=== PATIENT | female | born 1950 | race Caucasian/White ===

== ENCOUNTER 2020-07-31 13:51 | Emergency (ER) | payer MEDICARE, MEDICAID ==
[~2020-07-31] VITALS: Ht 162.6 cm; Wt 73.0 kg
[~2020-07-31 13:51] MED LIST: ASPI-986; ASPI-986 PO; ATOR20TA PO; CARVEDILOL; COR6 PO; HUMULIN; HYDR-4005 PO; INSU3INS6; ZOLP10TA2 PO
[2020-07-31] MEDS ORDERED: MORPHINE SULFATE 4 MG/ML CPJ (NOT FOR IM USE) IV STA (14:36)
[2020-07-31] MEDS ORDERED: SODIUM CHLORIDE 0.9% 1,000 ML IV ONE ×3 (14:36→14:38)
[2020-07-31] MEDS ORDERED: ONDANSETRON HCL 4MG/2ML INJ IV STA (14:36)
[2020-07-31] MEDS ORDERED: INSULIN REGULAR (HUMULIN R) 300UNITS/3ML SUBCUT ONE (14:45)
[2020-07-31] MEDS ORDERED: INSULIN REGULAR (HUMULIN R) UD 100 UNITS/ML SYR SUBCUT ONE (14:45)
[2020-07-31 15:16] LABS: BASOPHILS % 0.6 % (0.0-2.0); EOSINOPHILS % 3.7 % (0.0-5.0); HEMATOCRIT. 39.9 % (36.0-48.0); HEMOGLOBIN. 13.6 g/dL (12.0-16.0); MEAN CORPUSCULAR HEMOGLOBIN 31.6 pg (28.0-32.0); MEAN CORPUSCULAR VOLUME 92.7 fL (81.0-99.0); MEAN PLATELET VOLUME 9.5 fl (7.4-10.4); MONOCYTES % 8.1 % (2.0-8.0); NEUTROPHILS % 52.6 % (40.0-76.0); PLATELET 204 x1000/uL (130-400); RED BLOOD CELL COUNT 4.31 mill/uL (4.2-5.4)
[2020-07-31 15:17] LABS: PARTIAL THROMBOPLASTIN TIME 23.9 sec (23.4-31.0); PROTHROMBIN TIME 10.8 sec (9.6-11.0)
[2020-07-31 15:18] LABS: CHLORIDE 108 mEq/L (98-107)
[2020-07-31 15:25] LABS: BETA HYDROXYBUTYRATE 0.1 mMol/L (0.0-0.3)
[2020-07-31 16:49] LABS: CLARITY URINE CLOUDY (CLEAR); COLOR URINE YELLOW (YELLOW); KETONES URINE NEGATIVE (NEGATIVE); LEUKOCYTE ESTERASE URINE TRACE (NEGATIVE); NITRITE URINE NEGATIVE (NEGATIVE); OCCULT BLOOD URINE NEGATIVE (NEGATIVE); PROTEIN URINE NEGATIVE (NEGATIVE); SPECIFIC GRAVITY URINE 1.037 (1.005-1.030); UROBILINOGEN URINE 0.2 E.U./dL (0.2-1.0)
[2020-07-31 18:00] VITALS: BP 140/87
== END 2020-07-31 18:47 | disposition home or self-care (01) ==
LOC: ER 13:51
DX: N39.0 Urinary tract infection, site not specified (principal); E11.9 Type 2 diabetes mellitus without complications; E78.00 Pure hypercholesterolemia, unspecified; I10 Essential (primary) hypertension; Z86.73 Personal history of transient ischemic attack (TIA), and cerebral infarction without residual deficits; Z90.49 Acquired absence of other specified parts of digestive tract; Z79.82 Long term (current) use of aspirin; Z79.899 Other long term (current) drug therapy
CPT/HCPCS: 36415; 71045; 74176; 76705; 80053; 81003; 82010; 82962; 83690; 84484; 85025; 85610; 85730; 87086; 93005; 96361; 96372; 96374; 96375; 99285; J1815; J2270; J2405; J7030

== ENCOUNTER 2020-09-28 15:32 | Inpatient (IN) | payer MEDICARE, MEDICAID ==
[~2020-09-28] VITALS: Ht 160 cm; Wt 70.8 kg
[2020-09-28] MEDS ORDERED: FAMOTIDINE 20MG/2ML VIAL IV STA (17:04)
[2020-09-28 17:08] LABS: BASOPHILS % 0.4 % (0.0-2.0); EOSINOPHILS % 3.1 % (0.0-5.0); HEMATOCRIT. 39.2 % (36.0-48.0); HEMOGLOBIN. 13.4 g/dL (12.0-16.0); LYMPHOCYTES % 21.3 % (20.0-50.0); MEAN CORPUSCULAR HEMOGLOBIN 30.7 pg (28.0-32.0); MEAN PLATELET VOLUME 9.2 fl (7.4-10.4); MONOCYTES % 7.2 % (2.0-8.0); PLATELET 206 x1000/uL (130-400); RED BLOOD CELL COUNT 4.35 mill/uL (4.2-5.4); RED CELL DISTRIBUTION WIDTH 14.1 % (11.6-14.6)
[2020-09-28] MEDS ORDERED: MORPHINE SULFATE 4 MG/ML CPJ (NOT FOR IM USE) IV STA (17:11)
[2020-09-28] MEDS ORDERED: ONDANSETRON HCL 4MG/2ML INJ IV STA (17:11)
[2020-09-28 17:13] LABS: CHLORIDE 107 mEq/L (98-107)
[2020-09-28 17:14] LABS: PROTHROMBIN TIME 10.4 sec (9.6-11.0)
[2020-09-28] MEDS ORDERED: SODIUM CHLORIDE 0.9% 500 ML IV ONE (17:45)
[2020-09-28 18:10] LABS: CLARITY URINE CLOUDY (CLEAR); COLOR URINE YELLOW (YELLOW); KETONES URINE NEGATIVE (NEGATIVE); LEUKOCYTE ESTERASE URINE 1+ (NEGATIVE); NITRITE URINE NEGATIVE (NEGATIVE); OCCULT BLOOD URINE TRACE (NEGATIVE); PROTEIN URINE NEGATIVE (NEGATIVE); SPECIFIC GRAVITY URINE 1.028 (1.005-1.030); UROBILINOGEN URINE 0.2 E.U./dL (0.2-1.0)
[2020-09-28] MEDS ORDERED: CEFTRIAXONE 1 G PREMIX 50 ML IV ONE (20:00)
[2020-09-28] MEDS ORDERED: ONDANSETRON HCL 4MG/2ML INJ IV ONE (21:00)
[2020-09-28] MEDS ORDERED: MORPHINE SULFATE 4 MG/ML CPJ (NOT FOR IM USE) IV ONE (21:00)
[2020-09-28] MEDS ORDERED: PNEUMOCOCCAL 23-VAL P-SAC VAC 0.5 ML IM ONE (22:45)
[2020-09-28] MEDS ORDERED: INFLUENZA VACCINE 05/PF 0.5 ML VIAL IM ONE (22:45)
[2020-09-28] MEDS ORDERED: ENAL2.5T PO (22:48)
[2020-09-28 22:58] VITALS: BP 170/66
[2020-09-28] MEDS ORDERED: ONDANSETRON HCL 4MG/2ML INJ IV PRN (23:00)
[2020-09-28] MEDS ORDERED: CLONIDINE 0.1MG TABLET PO PRN (23:00)
[2020-09-28] MEDS ORDERED: HYDROCODONE/ACETAMINOPHEN 5/325MG TABLET PO PRN (23:00)
[2020-09-28] MEDS ORDERED: ACETAMINOPHEN 325MG TABLET PO PRN (23:00)
[2020-09-28] MEDS ORDERED: DOCUSATE SODIUM 100MG CAPSULE PO PRN (23:00)
[2020-09-28] MEDS ORDERED: MAGNESIUM/ALUMINUM HYDROXIDE/SIMETHICONE 30ML UDC PO PRN (23:00)
[2020-09-28] MEDS ORDERED: GABA-531 PO (23:07)
[2020-09-28] MEDS: AMLODIPINE 10MG TABLET PO SCH (23:32)
[2020-09-29] VITALS (7 sets, daily range): BP systolic 103–141; BP diastolic 53–70
[2020-09-29] MEDS: ACETAMINOPHEN WITH CODEINE 300/30MG TABLET PO PRN ×2 (00:08→20:59)
[2020-09-29] MEDS ORDERED: DEXTROSE 50% WATER 50ML SYRINGE IV PRN (06:00)
[2020-09-29] MEDS: KETOROLAC 15MG/ML VIAL IV PRN ×3 (06:15→18:21)
[2020-09-29 06:20] LABS: BASOPHILS % 0.4 % (0.0-2.0); EOSINOPHILS % 2.3 % (0.0-5.0); HEMATOCRIT. 38.5 % (36.0-48.0); HEMOGLOBIN. 13.1 g/dL (12.0-16.0); LYMPHOCYTES % 23.7 % (20.0-50.0); MEAN CORPUSCULAR HEMOGLOBIN 30.3 pg (28.0-32.0); MEAN CORPUSCULAR VOLUME 89.2 fL (81.0-99.0); MEAN PLATELET VOLUME 9.1 fl (7.4-10.4); MONOCYTES % 7.8 % (2.0-8.0); NEUTROPHILS % 65.8 % (40.0-76.0); PLATELET 199 x1000/uL (130-400); RED BLOOD CELL COUNT 4.31 mill/uL (4.2-5.4); RED CELL DISTRIBUTION WIDTH 14.1 % (11.6-14.6)
[2020-09-29 06:49] LABS: CHLORIDE 106 mEq/L (98-107)
[2020-09-29] MEDS: BLOOD SUGAR DIAGNOSTIC STRIP TEST SCH ×4 (07:18→20:51)
[2020-09-29] MEDS: AMLODIPINE 10MG TABLET PO SCH (08:51)
[2020-09-29] MEDS: INSULIN LISPRO 100 UNITS/ML SUBCUT SCH ×4 (08:54→21:12)
[2020-09-29] MEDS: LEVOFLOXACIN 500MG PREMIX 100 ML IV SCH (08:58)
[2020-09-29] MEDS ORDERED: ZOLPIDEM TARTRATE 5MG TABLET PO PRN (10:15)
[2020-09-29] MEDS ORDERED: POTASSIUM CHLORIDE 20MEQ TABLET SR PO NR (11:18)
[2020-09-29] MEDS: CARVEDILOL 6.25 MG TABLET PO SCH ×2 (11:49→20:50)
[2020-09-29] MEDS: ASPIRIN 325MG TABLET PO SCH (11:49)
[2020-09-29] MEDS: GABAPENTIN 300MG CAPSULE PO SCH (11:49)
[2020-09-29] MEDS ORDERED: ATORVASTATIN CALCIUM 20MG TABLET PO SCH (21:00)
[2020-09-30] VITALS: BP 144/70
[2020-09-30] MEDS: KETOROLAC 15MG/ML VIAL IV PRN ×3 (00:32→13:40)
[2020-09-30 04:00] VITALS: BP 114/51
[2020-09-30] MEDS: ACETAMINOPHEN WITH CODEINE 300/30MG TABLET PO PRN (04:30)
[2020-09-30] MEDS: BLOOD SUGAR DIAGNOSTIC STRIP TEST SCH ×3 (07:20→17:52)
[2020-09-30] MEDS: LEVOFLOXACIN 500MG PREMIX 100 ML IV SCH (08:50)
[2020-09-30] MEDS: AMLODIPINE 10MG TABLET PO SCH (08:50)
[2020-09-30] MEDS: GABAPENTIN 300MG CAPSULE PO SCH (08:50)
[2020-09-30] MEDS: ASPIRIN 325MG TABLET PO SCH (08:50)
[2020-09-30] MEDS: CARVEDILOL 6.25 MG TABLET PO SCH (08:52)
[2020-09-30] MEDS: INSULIN LISPRO 100 UNITS/ML SUBCUT SCH ×3 (09:01→18:21)
[2020-09-30] MEDS ORDERED: NITROFURANTOIN 100MG M/M CAPSULE PO SCH (10:00)
[2020-09-30 12:00] VITALS: BP 139/60
[2020-09-30 14:41] VITALS: BP_SYST 139; BP_SYST 18; BP_DIAS 141; BP_DIAS 60
[2020-09-30 16:00] VITALS: BP 141/79
[2020-09-30 20:00] VITALS: BP 145/82
[2020-09-30] MEDS ORDERED: HEMORRHOIDAL SUPP PR SCH (21:00)
== END 2020-09-30 17:30 | DRG 690 ==
LOC: ER 15:32 → 6EST 20:26 → EDBEDREQ 20:59 → EDBEDREQTM 20:59 → EDBEDREQSVC 20:59 → ENRESERV 21:30
PROVIDERS: ADMIT Hospitalist; ATTEND Hospitalist
DX: N39.0 Urinary tract infection, site not specified (principal); E44.1 Mild protein-calorie malnutrition; R45.851 Suicidal ideations; I10 Essential (primary) hypertension; E78.5 Hyperlipidemia, unspecified; E11.9 Type 2 diabetes mellitus without complications; E78.00 Pure hypercholesterolemia, unspecified; K57.90 Diverticulosis of intestine, part unspecified, without perforation or abscess without bleeding; I25.10 Atherosclerotic heart disease of native coronary artery without angina pectoris; K64.9 Unspecified hemorrhoids; Z20.828 Contact with and (suspected) exposure to other viral communicable diseases; K76.0 Fatty (change of) liver, not elsewhere classified; Z83.3 Family history of diabetes mellitus; Z86.73 Personal history of transient ischemic attack (TIA), and cerebral infarction without residual deficits; Z90.49 Acquired absence of other specified parts of digestive tract; Z79.82 Long term (current) use of aspirin; Z79.891 Long term (current) use of opiate analgesic; Z79.899 Other long term (current) drug therapy
CPT/HCPCS: 36415; 71045; 74176; 76705; 80053; 81003; 82962; 83036; 84484; 85025; 87077; 87186; 87426; 90686; 90732; 93005; 93970; 96374; 99285; C1893; J0696; J1815; J1885; J1956; J2270; J2405; J3490; J7040

== ENCOUNTER 2021-05-13 23:19 | Emergency (ER) | payer MEDICARE, MEDICAID ==
[~2021-05-13] VITALS: Ht 167.6 cm; Wt 73.0 kg
[~2021-05-13 23:19] MED LIST changes: +ENAL2.5T17 PO; +GABA-532 PO
[2021-05-13] MEDS ORDERED: INSULIN REGULAR (HUMULIN R) 300UNITS/3ML VIAL SUBCUT ONE (23:45)
[2021-05-13] MEDS ORDERED: SODIUM CHLORIDE 0.9% 1,000 ML IV ONE (23:45)
[2021-05-13 23:58] LABS: BASOPHILS % 0.7 % (0.0-2.0); EOSINOPHILS % 2.8 % (0.0-5.0); HEMATOCRIT. 43.7 % (36.0-48.0); HEMOGLOBIN. 14.9 g/dL (12.0-16.0); MEAN CORPUSCULAR HEMOGLOBIN 30.8 pg (28.0-32.0); MEAN CORPUSCULAR VOLUME 90.2 fL (81.0-99.0); MEAN PLATELET VOLUME 8.9 fl (7.4-10.4); MONOCYTES % 8.1 % (2.0-8.0); NEUTROPHILS % 62.4 % (40.0-76.0); PLATELET 259 x1000/uL (130-400); RED BLOOD CELL COUNT 4.84 mill/uL (4.2-5.4); RED CELL DISTRIBUTION WIDTH 14.4 % (11.6-14.6)
[2021-05-14 00:04] LABS: CHLORIDE 105 mEq/L (98-107)
[2021-05-14 00:13] LABS: BETA HYDROXYBUTYRATE 0.2 mMol/L (0.0-0.3)
[2021-05-14] MEDS: ACETAMINOPHEN WITH CODEINE 300/30MG TABLET PO SCH ×3 (00:30→00:40)
[2021-05-14 01:26] LABS: CLARITY URINE CLEAR (CLEAR); COLOR URINE YELLOW (YELLOW); KETONES URINE NEGATIVE (NEGATIVE); LEUKOCYTE ESTERASE URINE NEGATIVE (NEGATIVE); NITRITE URINE NEGATIVE (NEGATIVE); OCCULT BLOOD URINE 1+ (NEGATIVE); PROTEIN URINE NEGATIVE (NEGATIVE); SPECIFIC GRAVITY URINE 1.029 (1.005-1.030); UROBILINOGEN URINE 0.2 E.U./dL (0.2-1.0)
[2021-05-14] MEDS ORDERED: CEPH500C2 MT (01:51)
[2021-05-14 02:15] VITALS: BP 128/80
== END 2021-05-14 02:23 | disposition home or self-care (01) ==
LOC: ER 23:19
DX: E11.65 Type 2 diabetes mellitus with hyperglycemia (principal); E78.00 Pure hypercholesterolemia, unspecified; I11.9 Hypertensive heart disease without heart failure; Z79.82 Long term (current) use of aspirin; Z79.4 Long term (current) use of insulin; Z79.899 Other long term (current) drug therapy; Z98.890 Other specified postprocedural states; Z90.49 Acquired absence of other specified parts of digestive tract; Z86.73 Personal history of transient ischemic attack (TIA), and cerebral infarction without residual deficits
CPT/HCPCS: 36415; 71045; 80053; 81003; 82010; 82962; 83690; 85025; 93005; 96372; 99284; J1815; J7030; 99283

== ENCOUNTER 2021-09-28 14:37 | Emergency (ER) | payer BC, MEDICAID ==
[~2021-09-28] VITALS: Ht 162.6 cm; Wt 65.0 kg
[~2021-09-28 14:37] MED LIST changes: +AMIT75TA2 PO; +AMLO10TA80 PO; -ASPI-986; +ATOR20TA65 PO; -CARVEDILOL; +CEPH500C2 MT; +CLON0.1T PO; -COR6 PO; -ENAL2.5T17 PO; +ENAL20TA18 PO; +EXEN2AUT SQ; +FAMO40TA7 PO; -GABA-532 PO; -HUMULIN; -HYDR-4005 PO; +MIRT-89 PO; +QUET50TA23 PO; +TLXL5 MT
[2021-09-28 15:59] LABS: BASOPHILS % 0.6 % (0.0-2.0); EOSINOPHILS % 10.2 % (0.0-5.0); HEMATOCRIT. 43.6 % (36.0-48.0); HEMOGLOBIN. 14.7 g/dL (12.0-16.0); LYMPHOCYTES % 30.6 % (20.0-50.0); MEAN CORPUSCULAR HEMOGLOBIN 30.8 pg (28.0-32.0); MEAN CORPUSCULAR VOLUME 91.4 fL (81.0-99.0); MEAN PLATELET VOLUME 9.1 fl (7.4-10.4); MONOCYTES % 7.4 % (2.0-8.0); NEUTROPHILS % 51.2 % (40.0-76.0); PLATELET 229 x1000/uL (130-400); RED BLOOD CELL COUNT 4.77 mill/uL (4.2-5.4); RED CELL DISTRIBUTION WIDTH 15.3 % (11.6-14.6)
[2021-09-28 16:14] LABS: CHLORIDE 110 mEq/L (98-107)
[2021-09-28] MEDS ORDERED: ACETAMINOPHEN WITH CODEINE 300/30MG TABLET PO ONE (17:30)
[2021-09-28] MEDS ORDERED: IOHEXOL-350 100 ML BOTTLE ONE (21:02)
[2021-09-28 21:29] LABS: CLARITY URINE CLEAR (CLEAR); COLOR URINE YELLOW (YELLOW); KETONES URINE NEGATIVE (NEGATIVE); LEUKOCYTE ESTERASE URINE 1+ (NEGATIVE); NITRITE URINE POSITIVE (NEGATIVE); OCCULT BLOOD URINE NEGATIVE (NEGATIVE); PROTEIN URINE NEGATIVE (NEGATIVE); SPECIFIC GRAVITY URINE 1.056 (1.005-1.030); UROBILINOGEN URINE 0.2 E.U./dL (0.2-1.0)
[2021-09-28] MEDS ORDERED: LORAZEPAM 1MG TABLET PO ONE (21:45)
[2021-09-28] MEDS ORDERED: CEFTRIAXONE 1 G PREMIX 50 ML IV ONE (22:00)
[2021-09-28] MEDS ORDERED: CEPH500C2 MT (23:33)
[2021-09-29 00:29] VITALS: BP 152/81
== END 2021-09-29 00:42 | disposition home or self-care (01) ==
LOC: ER 14:37
DX: R07.89 Other chest pain (principal); E78.00 Pure hypercholesterolemia, unspecified; E11.9 Type 2 diabetes mellitus without complications; I11.9 Hypertensive heart disease without heart failure; I69.354 Hemiplegia and hemiparesis following cerebral infarction affecting left non-dominant side; Z90.49 Acquired absence of other specified parts of digestive tract
CPT/HCPCS: 36415; 71045; 71275; 80053; 81003; 83880; 84484; 85025; 96365; 96366; 99285; J0696; Q9967

== ENCOUNTER 2021-12-22 18:54 | Inpatient (IN) | payer BC, MEDICAID ==
[~2021-12-22] VITALS: Ht 160 cm; Wt 68.0 kg
[2021-12-22] MEDS ORDERED: SODIUM CHLORIDE 0.9% 1,000 ML IV ONE (19:45)
[2021-12-22 20:08] LABS: HEMATOCRIT. 46.6 % (36.0-48.0); HEMOGLOBIN. 15.6 g/dL (12.0-16.0); MEAN CORPUSCULAR HEMOGLOBIN 29.7 pg (28.0-32.0); MEAN CORPUSCULAR VOLUME 88.8 fL (81.0-99.0); MEAN PLATELET VOLUME 9.3 fl (7.4-10.4); PLATELET 221 x1000/uL (130-400); RED BLOOD CELL COUNT 5.25 mill/uL (4.2-5.4); RED CELL DISTRIBUTION WIDTH 16.2 % (11.6-14.6)
[2021-12-22 20:14] LABS: CHLORIDE 108 mEq/L (98-107)
[2021-12-22 20:22] LABS: PROTHROMBIN TIME 10.9 sec (9.6-11.0)
[2021-12-22 20:49] LABS: PLATELET ESTIMATE NORMAL
[2021-12-22] MEDS ORDERED: PANTOPRAZOLE SODIUM 40 MG/VIAL IV ONE (21:30)
[2021-12-22] MEDS ORDERED: MORPHINE SULFATE 4 MG/ML CPJ (NOT FOR IM USE) IV ONE (21:30)
[2021-12-23] MEDS ORDERED: CEFP200T13 MT (03:41)
[2021-12-23] MEDS ORDERED: CEFTRIAXONE 1 G PREMIX 50 ML IV ONE (03:45)
[2021-12-23] MEDS ORDERED: MORPHINE SULFATE 4 MG/ML CPJ (NOT FOR IM USE) IV ONE (04:00)
[2021-12-23] MEDS ORDERED: IOHEXOL-300 100 ML BOTTLE ONE (06:32)
[2021-12-23] MEDS ORDERED: ACETAMINOPHEN 325MG TABLET PO PRN (10:00)
[2021-12-23] MEDS ORDERED: ONDANSETRON HCL 4MG/2ML INJ IV PRN (10:00)
[2021-12-23 10:29] LABS: HEMOGLOBIN 14.4 g/dL (12.0-16.0)
[2021-12-23] MEDS: POLYETHYLENE GLYCOL 3350 (17GM) 1 DOSE PACK PO SCH (13:00)
[2021-12-23] MEDS: OMEPRAZOLE 20MG CAPSULE EXTENDED RELEASE PO SCH (13:00)
[2021-12-23 16:03] VITALS: BP 159/60
[2021-12-23 16:15] VITALS: BP 120/68
[2021-12-23] MEDS: TRAMADOL 50MG TABLET PO PRN (17:55)
[2021-12-23 18:05] LABS: HEMATOCRIT 42.5 % (36.0-48.0); HEMOGLOBIN 14.4 g/dL (12.0-16.0)
[2021-12-23] MEDS ORDERED: HEMORRHOIDAL SUPP PR NR (19:00)
[2021-12-23 19:01] LABS: TOTAL IRON BINDING CAPACITY 347 ug/dL (250-450)
[2021-12-23 19:15] LABS: FERRITIN 38 ng/mL (10-291)
[2021-12-23 19:26] LABS: VITAMIN B12 SERUM 372 pg/mL (211-911)
[2021-12-23] MEDS ORDERED: NALOXONE HCL 0.4MG/ML VIAL IV PRN (19:45)
[2021-12-23 20:00] VITALS: BP 146/84
[2021-12-23] MEDS: HYDROCODONE/ACETAMINOPHEN 10/325MG TABLET PO PRN (20:45)
[2021-12-23] MEDS ORDERED: DEXTROSE 50% WATER 50ML SYRINGE IV PRN (21:45)
[2021-12-24] VITALS: BP 150/85
[2021-12-24] MEDS: TRAMADOL 50MG TABLET PO PRN ×2 (00:12→23:11)
[2021-12-24] MEDS: HYDROCODONE/ACETAMINOPHEN 10/325MG TABLET PO PRN ×3 (01:05→13:42)
[2021-12-24 04:00] VITALS: BP 141/83
[2021-12-24] MEDS ORDERED: CEFTRIAXONE 1 G PREMIX 50 ML IV SCH (04:00)
[2021-12-24] MEDS: CEFTRIAXONE 1,000 MG in DEXTROSE 5% WATER 50 ML IV SCH (04:25)
[2021-12-24] MEDS: OMEPRAZOLE 20MG CAPSULE EXTENDED RELEASE PO SCH (06:54)
[2021-12-24] MEDS: BLOOD SUGAR DIAGNOSTIC STRIP TEST SCH ×4 (06:54→20:29)
[2021-12-24 07:23] LABS: CLARITY URINE TURBID (CLEAR); COLOR URINE YELLOW (YELLOW); KETONES URINE 1+ (NEGATIVE); LEUKOCYTE ESTERASE URINE 2+ (NEGATIVE); NITRITE URINE POSITIVE (NEGATIVE); OCCULT BLOOD URINE 3+ (NEGATIVE); PROTEIN URINE 2+ (NEGATIVE); SPECIFIC GRAVITY URINE 1.044 (1.005-1.030); UROBILINOGEN URINE 0.2 E.U./dL (0.2-1.0)
[2021-12-24 08:30] VITALS: BP 138/65
[2021-12-24] MEDS: HEMORRHOIDAL SUPP PR SCH ×3 (09:32→21:00)
[2021-12-24] MEDS: POLYETHYLENE GLYCOL 3350 (17GM) 1 DOSE PACK PO SCH (09:33)
[2021-12-24] MEDS: INSULIN LISPRO 100 UNITS/ML SUBCUT SCH ×4 (09:42→20:24)
[2021-12-24 12:00] VITALS: BP 135/64
[2021-12-24 12:52] LABS: BASOPHILS % 0.5 % (0.0-2.0); EOSINOPHILS % 2.7 % (0.0-5.0); HEMATOCRIT. 42.8 % (36.0-48.0); LYMPHOCYTES % 17.1 % (20.0-50.0); MEAN CORPUSCULAR HEMOGLOBIN 29.3 pg (28.0-32.0); MEAN CORPUSCULAR VOLUME 89.8 fL (81.0-99.0); MEAN PLATELET VOLUME 9.1 fl (7.4-10.4); MONOCYTES % 7.6 % (2.0-8.0); NEUTROPHILS % 72.1 % (40.0-76.0); PLATELET 198 x1000/uL (130-400); RED BLOOD CELL COUNT 4.77 mill/uL (4.2-5.4); RED CELL DISTRIBUTION WIDTH 16.1 % (11.6-14.6)
[2021-12-24 12:57] LABS: CHLORIDE 108 mEq/L (98-107)
[2021-12-24] MEDS: PHENAZOPYRIDINE HCL 100MG TABLET PO SCH ×2 (13:42→17:22)
[2021-12-24] MEDS ORDERED: MORPHINE SULFATE 2 MG/ML CPJ (NOT FOR IM USE) IV NR (15:30)
[2021-12-24] MEDS ORDERED: LACTULOSE 20G/30ML UDC PO NR (15:45)
[2021-12-24 17:04] VITALS: BP 141/61
[2021-12-24 20:00] VITALS: BP 110/60
[2021-12-24] MEDS ORDERED: LEVO500T89 MT (23:04)
[2021-12-25] VITALS: BP 129/64
[2021-12-25] MEDS: CEFTRIAXONE 1,000 MG in DEXTROSE 5% WATER 50 ML IV SCH (03:24)
[2021-12-25] MEDS: HYDROCODONE/ACETAMINOPHEN 10/325MG TABLET PO PRN (03:27)
[2021-12-25 03:50] VITALS: BP 149/69
[2021-12-25 06:14] LABS: CHLORIDE 109 mEq/L (98-107)
[2021-12-25] MEDS: OMEPRAZOLE 20MG CAPSULE EXTENDED RELEASE PO SCH (06:25)
[2021-12-25] MEDS: BLOOD SUGAR DIAGNOSTIC STRIP TEST SCH ×4 (06:25→21:14)
[2021-12-25 06:26] LABS: BASOPHILS % 0.6 % (0.0-2.0); HEMATOCRIT. 39.7 % (36.0-48.0); HEMOGLOBIN. 13.6 g/dL (12.0-16.0); LYMPHOCYTES % 23.4 % (20.0-50.0); MEAN CORPUSCULAR HEMOGLOBIN 30.6 pg (28.0-32.0); MEAN CORPUSCULAR VOLUME 89.1 fL (81.0-99.0); MEAN PLATELET VOLUME 9.3 fl (7.4-10.4); PLATELET 188 x1000/uL (130-400); RED BLOOD CELL COUNT 4.45 mill/uL (4.2-5.4); RED CELL DISTRIBUTION WIDTH 15.9 % (11.6-14.6)
[2021-12-25] MEDS ORDERED: MORPHINE SULFATE 4 MG/ML CPJ (NOT FOR IM USE) IV SCH (06:45)
[2021-12-25] MEDS ORDERED: MORPHINE SULFATE 2 MG/ML CPJ (NOT FOR IM USE) IV SCH (06:47)
[2021-12-25] MEDS: INSULIN LISPRO 100 UNITS/ML SUBCUT SCH ×4 (07:50→21:15)
[2021-12-25 08:00] VITALS: BP 104/68
[2021-12-25] MEDS: POLYETHYLENE GLYCOL 3350 (17GM) 1 DOSE PACK PO SCH (09:01)
[2021-12-25] MEDS: HEMORRHOIDAL SUPP PR SCH ×2 (09:01→21:14)
[2021-12-25] MEDS: PHENAZOPYRIDINE HCL 100MG TABLET PO SCH ×3 (10:12→17:49)
[2021-12-25 11:50] VITALS: BP 107/67
[2021-12-25 16:00] VITALS: BP 106/49
[2021-12-25] MEDS ORDERED: BISACODYL 5MG TABLET PO PRN (16:15)
[2021-12-25] MEDS ORDERED: MORPHINE SULFATE 2 MG/ML CPJ (NOT FOR IM USE) IV NR (17:30)
[2021-12-25] MEDS: DOCUSATE SODIUM 250MG CAPSULE PO SCH (17:49)
[2021-12-25 20:00] VITALS: BP 122/61
[2021-12-25] MEDS: LACTULOSE 20G/30ML UDC PO SCH (21:14)
[2021-12-26] VITALS: BP 130/65
[2021-12-26] MEDS: TRAMADOL 50MG TABLET PO PRN (01:08)
[2021-12-26] MEDS: CEFTRIAXONE 1,000 MG in DEXTROSE 5% WATER 50 ML IV SCH (03:55)
[2021-12-26 04:00] VITALS: BP 137/69
[2021-12-26] MEDS: LACTULOSE 20G/30ML UDC PO SCH ×2 (06:22→14:00)
[2021-12-26] MEDS: OMEPRAZOLE 20MG CAPSULE EXTENDED RELEASE PO SCH (06:23)
[2021-12-26] MEDS: BLOOD SUGAR DIAGNOSTIC STRIP TEST SCH ×3 (06:39→17:48)
[2021-12-26 06:50] LABS: BASOPHILS % 0.7 % (0.0-2.0); HEMATOCRIT. 42.6 % (36.0-48.0); HEMOGLOBIN. 14.6 g/dL (12.0-16.0); MEAN CORPUSCULAR HEMOGLOBIN 30.3 pg (28.0-32.0); MEAN CORPUSCULAR VOLUME 88.4 fL (81.0-99.0); MEAN PLATELET VOLUME 9.2 fl (7.4-10.4); MONOCYTES % 9.2 % (2.0-8.0); NEUTROPHILS % 57.1 % (40.0-76.0); PLATELET 206 x1000/uL (130-400); RED BLOOD CELL COUNT 4.82 mill/uL (4.2-5.4); RED CELL DISTRIBUTION WIDTH 15.8 % (11.6-14.6)
[2021-12-26 07:10] LABS: CHLORIDE 108 mEq/L (98-107)
[2021-12-26 08:00] VITALS: BP 132/75
[2021-12-26] MEDS: PHENAZOPYRIDINE HCL 100MG TABLET PO SCH ×3 (08:37→18:33)
[2021-12-26] MEDS: DOCUSATE SODIUM 250MG CAPSULE PO SCH (08:37)
[2021-12-26] MEDS: HEMORRHOIDAL SUPP PR SCH ×2 (08:37→09:00)
[2021-12-26] MEDS: INSULIN LISPRO 100 UNITS/ML SUBCUT SCH ×3 (08:39→17:50)
[2021-12-26] MEDS: POLYETHYLENE GLYCOL 3350 (17GM) 1 DOSE PACK PO SCH (08:42)
[2021-12-26 12:00] VITALS: BP 143/51
[2021-12-26 16:00] VITALS: BP 150/81
[2021-12-26 17:09] VITALS: BP 150/81
[2021-12-29] MEDS ORDERED: VANC250C12 MT (13:02)
== END 2021-12-26 20:24 | disposition home or self-care (01) | DRG 872 ==
LOC: ER 18:54 → MICUSO 12-23 06:07 → 6WST 12-23 16:40
PROVIDERS: ADMIT Internal Medicine; ATTEND Internal Medicine
DX: A41.9 Sepsis, unspecified organism (principal); E11.9 Type 2 diabetes mellitus without complications; I10 Essential (primary) hypertension; E78.5 Hyperlipidemia, unspecified; N30.90 Cystitis, unspecified without hematuria; E87.8 Other disorders of electrolyte and fluid balance, not elsewhere classified; K64.9 Unspecified hemorrhoids; E78.00 Pure hypercholesterolemia, unspecified; K57.90 Diverticulosis of intestine, part unspecified, without perforation or abscess without bleeding; Z20.822 Contact with and (suspected) exposure to COVID-19; F17.210 Nicotine dependence, cigarettes, uncomplicated; K76.0 Fatty (change of) liver, not elsewhere classified; Z86.73 Personal history of transient ischemic attack (TIA), and cerebral infarction without residual deficits; Z79.2 Long term (current) use of antibiotics; Z79.899 Other long term (current) drug therapy; Z79.1 Long term (current) use of non-steroidal anti-inflammatories (NSAID); Z79.82 Long term (current) use of aspirin; Z90.49 Acquired absence of other specified parts of digestive tract
CPT/HCPCS: 36415; 74018; 74177; 80053; 81003; 82607; 82728; 82962; 83540; 83550; 83605; 85014; 85018; 85025; 85044; 86850; 86900; 87015; 87045; 87426; 87427; 87449; 87493; 89055; 93005; 99285; C1893; C9113; J0696; J1815; J2270; J7030; J7060; Q9967

== ENCOUNTER 2022-03-14 05:26 | Inpatient (IN) | payer MEDICARE, MEDICAID ==
[2022-03-14] VITALS (51 sets, daily range): BP systolic 45–165; BP diastolic 14–108
[~2022-03-14] VITALS: Ht 160 cm; Wt 78.5 kg
[~2022-03-14 05:26] MED LIST changes: -AMIT75TA2 PO; -ATOR20TA65 PO; -CEPH500C2 MT; -CLON0.1T PO; +DAPA10TA PO; +DOCU-286 PO; +DULA1.5P SQ; -EXEN2AUT SQ; +FLUT15.844 NS; +HYDR-459 PO; +LINA1TAB5 PO; +SENN8.6T21 PO; +T3 PO; -TLXL5 MT; -ZOLP10TA2 PO
[2022-03-14] MEDS ORDERED: NICARDIPINE 100 MG in SODIUM CHLORIDE 0.9% 60 ML IV PRN (07:45)
[2022-03-14] MEDS: MORPHINE SULFATE 4 MG/ML CPJ (NOT FOR IM USE) IV PRN ×3 (10:16→15:15)
[2022-03-14] MEDS ORDERED: MORPHINE SULFATE 2 MG/ML CPJ (NOT FOR IM USE) IV NR (10:45)
[2022-03-14] MEDS: DEXT 5%/LACTATED RINGERS 1,000 ML IV SCH ×2 (12:09→20:16)
[2022-03-14] MEDS: NICARDIPINE 100 MG in SODIUM CHLORIDE 0.9% 60 ML IV PRN (12:10)
[2022-03-14] MEDS: DEXAMETHASONE 4MG/ML 1ML VIAL IV SCH ×2 (12:20→17:51)
[2022-03-14] MEDS ORDERED: DEXTROSE 50% WATER 50ML SYRINGE IV PRN (12:30)
[2022-03-14] MEDS ORDERED: ACETAMINOPHEN 325MG TABLET PO PRN (12:30)
[2022-03-14] MEDS ORDERED: ONDANSETRON HCL 4MG/2ML INJ IV PRN (12:30)
[2022-03-14] MEDS ORDERED: HYDRALAZINE 20MG/ML VIAL IV PRN (12:30)
[2022-03-14] MEDS ORDERED: NALOXONE HCL 0.4MG/ML VIAL IV PRN (12:45)
[2022-03-14] MEDS ORDERED: CEFAZOLIN SODIUM 1000MG/VIAL IV SCH (14:00)
[2022-03-14] MEDS ORDERED: HYDROMORPHONE HCL/PF 2MG/ML CPJ IM PRN (15:45)
[2022-03-14] MEDS: CEFAZOLIN 1000MG PREMIX 50 ML IV SCH ×2 (15:51→21:36)
[2022-03-14] MEDS: HYDROMORPHONE HCL/PF 2MG/ML CPJ IV PRN ×2 (16:12→21:36)
[2022-03-14] MEDS: BLOOD SUGAR DIAGNOSTIC STRIP TEST SCH ×2 (16:30→20:52)
[2022-03-14] MEDS ORDERED: IPRATROPIUM/ALBUTEROL 0.5-3(2.5)MG/3ML NEB HHN PRN (16:45)
[2022-03-14] MEDS: INSULIN LISPRO 100 UNITS/ML SUBCUT SCH ×2 (17:54→21:30)
[2022-03-15] VITALS (86 sets, daily range): BP systolic 76–156; BP diastolic 11–106
[2022-03-15] MEDS: DEXAMETHASONE 4MG/ML 1ML VIAL IV SCH ×3 (00:13→12:39)
[2022-03-15] MEDS: NICARDIPINE 100 MG in SODIUM CHLORIDE 0.9% 60 ML IV PRN ×2 (00:14→17:27)
[2022-03-15] MEDS: HYDROMORPHONE HCL/PF 2MG/ML CPJ IV PRN ×6 (00:51→21:27)
[2022-03-15] MEDS: CEFAZOLIN 1000MG PREMIX 50 ML IV SCH (05:43)
[2022-03-15] MEDS: INSULIN LISPRO 100 UNITS/ML SUBCUT SCH ×4 (05:43→21:26)
[2022-03-15] MEDS: DEXT 5%/LACTATED RINGERS 1,000 ML IV SCH ×2 (05:44→13:56)
[2022-03-15] MEDS: BLOOD SUGAR DIAGNOSTIC STRIP TEST SCH ×4 (05:44→21:09)
[2022-03-15 06:33] LABS: HEMATOCRIT. 37.3 % (36.0-48.0); HEMOGLOBIN. 12.5 g/dL (12.0-16.0); MEAN CORPUSCULAR VOLUME 89.9 fL (81.0-99.0); MEAN PLATELET VOLUME 9.1 fl (7.4-10.4); PLATELET 214 x1000/uL (130-400); RED BLOOD CELL COUNT 4.15 mill/uL (4.2-5.4); RED CELL DISTRIBUTION WIDTH 14.7 % (11.6-14.6)
[2022-03-15 06:43] LABS: CHLORIDE 111 mEq/L (98-107)
[2022-03-15] MEDS: AMLODIPINE 5MG TABLET PO SCH (09:29)
[2022-03-15] MEDS ORDERED: HYDROCODONE/APAP 7.5/325MG 1 TAB TABLET PO PRN (11:00)
[2022-03-15] MEDS ORDERED: HYDROCODONE/ACETAMINOPHEN 5/325MG TABLET PO PRN (11:00)
[2022-03-15] MEDS ORDERED: HYDROMORPHONE HCL/PF 2MG/ML CPJ IV NR (11:20)
[2022-03-15 13:21] LABS: PLATELET ESTIMATE NORMAL
[2022-03-15] MEDS: PANTOPRAZOLE SODIUM 40 MG/VIAL IV SCH (21:26)
[2022-03-16] VITALS (30 sets, daily range): BP systolic 78–185; BP diastolic 20–84
[2022-03-16] MEDS: HYDROMORPHONE HCL/PF 2MG/ML CPJ IV PRN ×3 (00:40→10:19)
[2022-03-16] MEDS: DEXT 5%/LACTATED RINGERS 1,000 ML IV SCH ×3 (00:40→21:35)
[2022-03-16 05:53] LABS: BASOPHILS % 0.1 % (0.0-2.0); HEMATOCRIT. 36.1 % (36.0-48.0); HEMOGLOBIN. 11.9 g/dL (12.0-16.0); LYMPHOCYTES % 7.7 % (20.0-50.0); MEAN CORPUSCULAR HEMOGLOBIN 29.9 pg (28.0-32.0); MEAN CORPUSCULAR VOLUME 90.9 fL (81.0-99.0); MONOCYTES % 7.3 % (2.0-8.0); NEUTROPHILS % 84.9 % (40.0-76.0); PLATELET 204 x1000/uL (130-400); RED BLOOD CELL COUNT 3.97 mill/uL (4.2-5.4); RED CELL DISTRIBUTION WIDTH 15.4 % (11.6-14.6)
[2022-03-16] MEDS: INSULIN LISPRO 100 UNITS/ML SUBCUT SCH ×2 (06:04→21:00)
[2022-03-16] MEDS: BLOOD SUGAR DIAGNOSTIC STRIP TEST SCH ×3 (06:05→21:36)
[2022-03-16 06:06] LABS: CHLORIDE 113 mEq/L (98-107)
[2022-03-16] MEDS: PANTOPRAZOLE SODIUM 40 MG/VIAL IV SCH (08:27)
[2022-03-16] MEDS: AMLODIPINE 5MG TABLET PO SCH (08:27)
[2022-03-16] MEDS ORDERED: HYDRALAZINE 10 MG in SODIUM CHLORIDE 0.9% 49.5 ML IV PRN ×4 (13:15)
[2022-03-17] VITALS: BP 146/65
[2022-03-17 04:00] VITALS: BP 149/64
[2022-03-17] MEDS: HYDROMORPHONE HCL/PF 2MG/ML CPJ IV PRN ×2 (05:20→23:43)
[2022-03-17] MEDS: DEXT 5%/LACTATED RINGERS 1,000 ML IV SCH ×2 (05:21→15:39)
[2022-03-17] MEDS: BLOOD SUGAR DIAGNOSTIC STRIP TEST SCH ×4 (06:51→20:48)
[2022-03-17 07:38] LABS: BASOPHILS % 0.2 % (0.0-2.0); EOSINOPHILS % 1.1 % (0.0-5.0); LYMPHOCYTES % 21.4 % (20.0-50.0); MEAN CORPUSCULAR HEMOGLOBIN 29.9 pg (28.0-32.0); MEAN CORPUSCULAR VOLUME 90.2 fL (81.0-99.0); MEAN PLATELET VOLUME 8.4 fl (7.4-10.4); MONOCYTES % 9.6 % (2.0-8.0); NEUTROPHILS % 67.7 % (40.0-76.0); PLATELET 204 x1000/uL (130-400); RED BLOOD CELL COUNT 4.33 mill/uL (4.2-5.4); RED CELL DISTRIBUTION WIDTH 14.7 % (11.6-14.6)
[2022-03-17 08:00] VITALS: BP 132/60
[2022-03-17 08:11] LABS: CHLORIDE 108 mEq/L (98-107)
[2022-03-17] MEDS: MORPHINE SULFATE 4 MG/ML CPJ (NOT FOR IM USE) IV PRN ×3 (09:24→21:06)
[2022-03-17] MEDS: AMLODIPINE 5MG TABLET PO SCH (09:25)
[2022-03-17] MEDS: INSULIN LISPRO 100 UNITS/ML SUBCUT SCH ×4 (09:26→21:05)
[2022-03-17] MEDS: PANTOPRAZOLE SODIUM 40 MG/VIAL IV SCH (09:29)
[2022-03-17] MEDS ORDERED: POTASSIUM CHLORIDE 20MEQ TABLET SR PO NR (12:00)
[2022-03-17] MEDS: LACTULOSE 20G/30ML UDC PO SCH ×2 (15:39→18:00)
[2022-03-17 16:00] VITALS: BP 118/48
[2022-03-17 20:00] VITALS: BP 139/67
[2022-03-18] VITALS: BP 133/55
[2022-03-18] MEDS: DEXT 5%/LACTATED RINGERS 1,000 ML IV SCH ×2 (01:50→13:11)
[2022-03-18 04:00] VITALS: BP 141/71
[2022-03-18] MEDS: HYDROMORPHONE HCL/PF 2MG/ML CPJ IV PRN ×3 (05:30→18:08)
[2022-03-18] MEDS: BLOOD SUGAR DIAGNOSTIC STRIP TEST SCH ×3 (06:54→17:25)
[2022-03-18 08:00] VITALS: BP 136/66
[2022-03-18] MEDS: PANTOPRAZOLE SODIUM 40 MG/VIAL IV SCH (09:13)
[2022-03-18] MEDS: AMLODIPINE 5MG TABLET PO SCH (09:13)
[2022-03-18] MEDS: INSULIN LISPRO 100 UNITS/ML SUBCUT SCH ×3 (09:18→17:58)
[2022-03-18 12:00] VITALS: BP 159/71
[2022-03-18 16:00] VITALS: BP 142/65
[2022-03-18 18:19] VITALS: BP 142/65
== END 2022-03-18 18:31 | DRG 471 ==
LOC: OR 05:26 → MICUNO 05:27 → 6EST 03-16 12:20
PROVIDERS: ADMIT Neurological Surgery; ATTEND Neurological Surgery
PROC: 0RG20A0 Fusion of 2 or more Cervical Vertebral Joints with Interbody Fusion Device, Anterior Approach, Anterior Column, Open Approach (ICD-10-PCS; principal; 2022-03-14)
PROC: 01N10ZZ Release Cervical Nerve, Open Approach (ICD-10-PCS; 2022-03-14)
PROC: 4A11X4G Monitoring of Peripheral Nervous Electrical Activity, Intraoperative, External Approach (ICD-10-PCS; 2022-03-14)
PROC: 0RB30ZZ Excision of Cervical Vertebral Disc, Open Approach (ICD-10-PCS; 2022-03-14)
DX: M48.02 Spinal stenosis, cervical region (principal); G82.50 Quadriplegia, unspecified; M47.12 Other spondylosis with myelopathy, cervical region; M50.01 Cervical disc disorder with myelopathy, high cervical region; I10 Essential (primary) hypertension; E11.9 Type 2 diabetes mellitus without complications; M47.22 Other spondylosis with radiculopathy, cervical region; R13.10 Dysphagia, unspecified; R26.89 Other abnormalities of gait and mobility; R41.0 Disorientation, unspecified; M25.78 Osteophyte, vertebrae; M50.11 Cervical disc disorder with radiculopathy, high cervical region; Z83.3 Family history of diabetes mellitus; Z86.79 Personal history of other diseases of the circulatory system
CPT/HCPCS: 36415; 72040; 72141; 76000; 80048; 82962; 85025; 86850; 86900; 87426; 88311; 97116; 97162; 97166; 97530; C9113; J0690; J1100; J1170; J1815; J2270; J2405; J3490; J7050; J7121; L0172

== ENCOUNTER 2022-03-18 18:35 | Inpatient (IN) | payer MEDICARE, MEDICAID ==
[~2022-03-18] VITALS: Ht 160 cm; Wt 78.5 kg
[2022-03-18] MEDS ORDERED: ACETAMINOPHEN 325MG TABLET PO PRN (19:15)
[2022-03-18] MEDS ORDERED: HYDROCODONE/ACETAMINOPHEN 10/325MG TABLET PO PRN (19:15)
[2022-03-18] MEDS ORDERED: MORPHINE SULFATE 2 MG/ML CPJ (NOT FOR IM USE) IV PRN (19:15)
[2022-03-18] MEDS ORDERED: DEXTROSE 50% WATER 50ML SYRINGE IV PRN (19:15)
[2022-03-18] MEDS ORDERED: HYDROCODONE/ACETAMINOPHEN 5/325MG TABLET PO PRN (19:15)
[2022-03-18] MEDS ORDERED: ONDANSETRON HCL 4MG/2ML INJ IV PRN (19:15)
[2022-03-18 20:00] VITALS: BP 123/74
[2022-03-18] MEDS: FAMOTIDINE 20MG TABLET PO SCH (21:00)
[2022-03-18] MEDS: ATORVASTATIN CALCIUM 20MG TABLET PO SCH (21:00)
[2022-03-18] MEDS: MIRTAZAPINE 15MG TABLET PO SCH (21:00)
[2022-03-18] MEDS: BLOOD SUGAR DIAGNOSTIC STRIP TEST SCH (21:00)
[2022-03-18] MEDS: INSULIN LISPRO 100 UNITS/ML SUBCUT SCH (21:00)
[2022-03-19] MEDS: BLOOD SUGAR DIAGNOSTIC STRIP TEST SCH ×4 (06:01→22:00)
[2022-03-19] MEDS: INSULIN LISPRO 100 UNITS/ML SUBCUT SCH ×4 (06:33→23:07)
[2022-03-19 08:00] VITALS: BP 132/64
[2022-03-19] MEDS ORDERED: PHENOL/SODIUM PHENOLATE 1.4% SRPAY 177ML MM PRN (09:30)
[2022-03-19] MEDS: DOCUSATE SODIUM 100MG CAPSULE PO SCH ×2 (10:45→17:00)
[2022-03-19] MEDS: FLUTICASONE PROPIONATE 50MCG/SPRAY BOTTLE BOTHNSTRLS SCH (11:12)
[2022-03-19] MEDS: AMLODIPINE 10MG TABLET PO SCH (11:24)
[2022-03-19] MEDS: ENALAPRIL 5MG TABLET PO SCH (11:25)
[2022-03-19] MEDS: QUETIAPINE FUMARATE 50MG TABLET PO SCH (11:25)
[2022-03-19 14:54] LABS: BASOPHILS % 0.2 % (0.0-2.0); EOSINOPHILS % 2.1 % (0.0-5.0); HEMATOCRIT. 44.2 % (36.0-48.0); HEMOGLOBIN. 14.6 g/dL (12.0-16.0); LYMPHOCYTES % 14.6 % (20.0-50.0); MEAN CORPUSCULAR HEMOGLOBIN 29.8 pg (28.0-32.0); MEAN CORPUSCULAR VOLUME 90.3 fL (81.0-99.0); MEAN PLATELET VOLUME 8.7 fl (7.4-10.4); MONOCYTES % 8.9 % (2.0-8.0); NEUTROPHILS % 74.2 % (40.0-76.0); PLATELET 262 x1000/uL (130-400); RED BLOOD CELL COUNT 4.89 mill/uL (4.2-5.4); RED CELL DISTRIBUTION WIDTH 14.4 % (11.6-14.6)
[2022-03-19 15:26] LABS: CHLORIDE 106 mEq/L (98-107)
[2022-03-19] MEDS: HYDROMORPHONE HCL/PF 2MG/ML CPJ IV PRN (19:55)
[2022-03-19 21:00] VITALS: BP 125/75
[2022-03-19] MEDS: MIRTAZAPINE 15MG TABLET PO SCH (22:57)
[2022-03-19] MEDS: ATORVASTATIN CALCIUM 20MG TABLET PO SCH (22:57)
[2022-03-19] MEDS: FAMOTIDINE 20MG TABLET PO SCH (22:57)
[2022-03-19] MEDS: INSULIN GLARGINE 100 UNITS/ML SUBCUT SCH (23:06)
[2022-03-20] MEDS: HYDROMORPHONE HCL/PF 2MG/ML CPJ IV PRN ×3 (03:56→21:27)
[2022-03-20] MEDS: BLOOD SUGAR DIAGNOSTIC STRIP TEST SCH ×4 (07:10→21:00)
[2022-03-20] MEDS: INSULIN LISPRO 100 UNITS/ML SUBCUT SCH ×4 (07:10→22:02)
[2022-03-20 07:34] LABS: BASOPHILS % 0.3 % (0.0-2.0); EOSINOPHILS % 4.4 % (0.0-5.0); HEMATOCRIT. 39.7 % (36.0-48.0); HEMOGLOBIN. 13.1 g/dL (12.0-16.0); LYMPHOCYTES % 23.3 % (20.0-50.0); MEAN CORPUSCULAR VOLUME 90.7 fL (81.0-99.0); MEAN PLATELET VOLUME 8.9 fl (7.4-10.4); MONOCYTES % 10.6 % (2.0-8.0); NEUTROPHILS % 61.4 % (40.0-76.0); PLATELET 246 x1000/uL (130-400); RED BLOOD CELL COUNT 4.38 mill/uL (4.2-5.4); RED CELL DISTRIBUTION WIDTH 14.5 % (11.6-14.6)
[2022-03-20 08:00] VITALS: BP 114/44
[2022-03-20 08:09] LABS: CHLORIDE 108 mEq/L (98-107)
[2022-03-20 08:15] LABS: TOTAL IRON BINDING CAPACITY 313 ug/dL (250-450)
[2022-03-20] MEDS: AMLODIPINE 10MG TABLET PO SCH (08:40)
[2022-03-20] MEDS: DOCUSATE SODIUM 100MG CAPSULE PO SCH ×2 (08:40→14:34)
[2022-03-20] MEDS: ENALAPRIL 5MG TABLET PO SCH (08:41)
[2022-03-20] MEDS: QUETIAPINE FUMARATE 50MG TABLET PO SCH (08:41)
[2022-03-20] MEDS: FLUTICASONE PROPIONATE 50MCG/SPRAY BOTTLE BOTHNSTRLS SCH (08:41)
[2022-03-20] MEDS: INSULIN GLARGINE 100 UNITS/ML SUBCUT SCH ×2 (10:00→22:03)
[2022-03-20] MEDS ORDERED: POTASSIUM CHLORIDE 20MEQ TABLET SR PO SCH (13:00)
[2022-03-20 20:00] VITALS: BP 133/79
[2022-03-20] MEDS: ATORVASTATIN CALCIUM 20MG TABLET PO SCH (21:28)
[2022-03-20] MEDS: FAMOTIDINE 20MG TABLET PO SCH (21:28)
[2022-03-20] MEDS: MIRTAZAPINE 15MG TABLET PO SCH (22:02)
[2022-03-21] MEDS: HYDROMORPHONE HCL/PF 2MG/ML CPJ IV PRN ×2 (00:18→07:18)
[2022-03-21] MEDS: INSULIN LISPRO 100 UNITS/ML SUBCUT SCH ×4 (07:20→23:18)
[2022-03-21] MEDS: BLOOD SUGAR DIAGNOSTIC STRIP TEST SCH ×4 (07:21→21:00)
[2022-03-21 08:00] VITALS: BP 143/68
[2022-03-21] MEDS: AMLODIPINE 10MG TABLET PO SCH (09:18)
[2022-03-21] MEDS: CYANOCOBALAMIN 1000MCG/ML VIAL IM SCH (09:18)
[2022-03-21] MEDS: FERROUS SULFATE 325MG TABLET PO SCH (09:19)
[2022-03-21] MEDS: DOCUSATE SODIUM 100MG CAPSULE PO SCH ×2 (09:19→17:48)
[2022-03-21] MEDS: ENALAPRIL 5MG TABLET PO SCH (09:19)
[2022-03-21] MEDS: QUETIAPINE FUMARATE 50MG TABLET PO SCH (09:19)
[2022-03-21] MEDS: FLUTICASONE PROPIONATE 50MCG/SPRAY BOTTLE BOTHNSTRLS SCH (09:20)
[2022-03-21] MEDS: INSULIN GLARGINE 100 UNITS/ML SUBCUT SCH ×2 (11:43→22:00)
[2022-03-21] MEDS: CEPHALEXIN 250MG CAPSULE PO SCH ×2 (17:48→23:01)
[2022-03-21 20:00] VITALS: BP 123/53
[2022-03-21] MEDS: ATORVASTATIN CALCIUM 20MG TABLET PO SCH (22:58)
[2022-03-21] MEDS: MIRTAZAPINE 15MG TABLET PO SCH (22:59)
[2022-03-21] MEDS: FAMOTIDINE 20MG TABLET PO SCH (23:10)
[2022-03-22] MEDS: CEPHALEXIN 250MG CAPSULE PO SCH ×2 (06:44→12:13)
[2022-03-22] MEDS: BLOOD SUGAR DIAGNOSTIC STRIP TEST SCH ×2 (07:09→11:15)
[2022-03-22] MEDS: INSULIN LISPRO 100 UNITS/ML SUBCUT SCH ×2 (07:34→12:17)
[2022-03-22 08:00] VITALS: BP 130/94
[2022-03-22] MEDS: CYANOCOBALAMIN 1000MCG/ML VIAL IM SCH (08:53)
[2022-03-22] MEDS: ENALAPRIL 5MG TABLET PO SCH (08:54)
[2022-03-22] MEDS: DOCUSATE SODIUM 100MG CAPSULE PO SCH (08:54)
[2022-03-22] MEDS: QUETIAPINE FUMARATE 50MG TABLET PO SCH (08:55)
[2022-03-22] MEDS: AMLODIPINE 10MG TABLET PO SCH (08:55)
[2022-03-22] MEDS: FLUTICASONE PROPIONATE 50MCG/SPRAY BOTTLE BOTHNSTRLS SCH (08:57)
[2022-03-22] MEDS: FERROUS SULFATE 325MG TABLET PO SCH (09:00)
[2022-03-22] MEDS: INSULIN GLARGINE 100 UNITS/ML SUBCUT SCH (12:23)
[2022-03-22 12:30] VITALS: BP 130/94
[2022-03-26 14:12] LABS: 25-HYDROXY VITAMIN D3 24 ng/mL (.)
== END 2022-03-22 12:55 | disposition left against medical advice (07) | DRG 551 ==
PROVIDERS: ADMIT Physical Medicine & Rehabilitation Spinal Cord Injury Medicine; ATTEND Internal Medicine
DX: M47.12 Other spondylosis with myelopathy, cervical region (principal); G82.50 Quadriplegia, unspecified; K59.2 Neurogenic bowel, not elsewhere classified; M54.2 Cervicalgia; E11.9 Type 2 diabetes mellitus without complications; I10 Essential (primary) hypertension; M48.02 Spinal stenosis, cervical region; M54.12 Radiculopathy, cervical region; N31.9 Neuromuscular dysfunction of bladder, unspecified; R13.10 Dysphagia, unspecified; E61.1 Iron deficiency; R26.89 Other abnormalities of gait and mobility; R26.81 Unsteadiness on feet; R41.0 Disorientation, unspecified; R53.1 Weakness; R53.81 Other malaise; Z83.3 Family history of diabetes mellitus; Z63.5 Disruption of family by separation and divorce; Z79.899 Other long term (current) drug therapy; Z79.4 Long term (current) use of insulin; Z56.0 Unemployment, unspecified; Z98.1 Arthrodesis status
CPT/HCPCS: 36415; 73090; 80053; 82306; 82607; 82728; 82746; 82962; 83036; 83540; 83550; 84134; 84443; 85025; 92610; 93970; 97110; 97116; 97163; 97166; 97530; 97535; C1893; J1170; J1815; J2270; J3420

== ENCOUNTER 2024-12-22 19:49 | Emergency (ER) | payer MEDICARE, MEDICAID ==
[~2024-12-22] VITALS: Ht 167.6 cm; Wt 68.0 kg
[~2024-12-22 19:49] MED LIST changes: -ASPI-986 PO; +ENAL-79 PO; -ENAL20TA18 PO; -T3 PO
[2024-12-22 19:54] VITALS: BP 168/88; PULSE 78; RESP 20; TEMP 98.6; O2SAT 98
== END 2024-12-22 22:30 | disposition left against medical advice (07) ==
LOC: ER 19:49
DX: F41.9 Anxiety disorder, unspecified (principal); Z53.21 Procedure and treatment not carried out due to patient leaving prior to being seen by health care provider

== ENCOUNTER 2025-06-27 23:14 | Emergency (ER) | payer MEDICARE, MEDICAID ==
[~2025-06-27] VITALS: Ht 157.5 cm; Wt 64.0 kg
[~2025-06-27 23:14] MED LIST changes: -AMLO10TA80 PO; -DOCU-286 PO; -DULA1.5P SQ; -FAMO40TA7 PO; -HYDR-459 PO; +INSU300I SUBCUT; -INSU3INS6; -LINA1TAB5 PO; -SENN8.6T21 PO
[2025-06-27 23:28] VITALS: BP 198/73; PULSE 75; RESP 18; TEMP 36.8; O2SAT 99
== END 2025-06-27 23:47 | disposition left against medical advice (07) ==
LOC: ER 23:14
DX: F41.9 Anxiety disorder, unspecified (principal); Z53.21 Procedure and treatment not carried out due to patient leaving prior to being seen by health care provider